=== PATIENT | male | born 1960 | race Caucasian/White ===

== ENCOUNTER → 2020-04-25 | Emergency (ER) | payer SELFPAY ==
[~2020-04-25] VITALS: Ht 180.3 cm; Wt 81.6 kg
[~2020-04-25] MED LIST: IV LR 1000 ML 1,000 ML IV ONE; IV NS 0.9% 1,000 ML BAG IV ONE; ONDANSETRON HCL/PF - ER 4 MG/2 ML VIAL IV ONE; ONDANSETRON HCL/PF 4 MG/2 ML VIAL ONE
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
--- NOTE | 2020-04-25 20:28 | NUR ---
1L FLUIDS GIVEN TO PT.
--- NOTE | 2020-04-25 20:32 | NUR ---
CALLED CT TO TAKE PT TO CT [facility].
--- NOTE | 2020-04-25 20:40 | NUR ---
Donna montoya in [facility] - 04/25/20 at 2058 by KAUSHIKOR BROUGHT TO CT
--- NOTE | 2020-04-25 20:43 | NUR ---
CALLED CT AGAIN, STATED WAITING FOR LABS
--- NOTE | 2020-04-25 20:45 | NUR ---
BROUGHT TO CT
[2020-04-25 20:47] LABS: BASOPHILS % (AUTO) 0.1 % (0.0-2.0); HEMATOCRIT 39 % (39-51); HEMOGLOBIN 12.6 g/dL (13.5-17.5); LYMPHOCYTES % (AUTO) 4.9 % (20.0-44.0); MEAN CORPUSCULAR HGB CONC 33 g/dl (31.0-36.0); MEAN CORPUSCULAR VOLUME 89 fL (80-96); MONOCYTES # (AUTO) 1.8 /CMM (0.1-1.30); MONOCYTES % (AUTO) 8.8 % (2.0-12.0); NEUTROPHILS # (AUTO) 17.6 /CMM (1.8-8.9); NEUTROPHILS % (AUTO) 86.2 % (43.0-81.0); PLATELET COUNT (AUTO) 172 /CMM (150-450); RED BLOOD CELL COUNT(AUTO) 4.31 MIL/uL (4.5-6.0); WHITE BLOOD COUNT (AUTO) 20.5 K/uL (4.3-11.0)
[2020-04-25 21:44] LABS: CALCIUM, SERUM 9.1 mg/dL (8.5-10.1); CREATININE 1.5 mg/dL (0.6-1.3); POTASSIUM 3.4 mmol/L (3.5-5.1)
--- NOTE | 2020-04-25 21:49 | NUR ---
CALLED [facility] [phone], DR. GUILLORY SPEAKING TO [facility], SPOKE TO [facility], INSTRUCTED TO FILL OUT TRANSFER FORM THEN PLACED ON HOLD. DR. GUILLORY AWARE
[2020-04-25 21:50] LABS: ALBUMIN 4.2 g/dL (3.4-5.0); BILIRUBIN,DIRECT 0.2 mg/dL (0.0-0.2); TOTAL PROTEIN, SERUM 6.7 g/dL (6.4-8.2)
--- NOTE | 2020-04-25 21:51 | NUR ---
MICHEL HUNTER TALKING TO DR. HARDWICK FROM [facility]. PT ACCEPTED BY DR. HARDWICK PER DR. GUILLORY
--- NOTE | 2020-04-25 21:57 | NUR ---
REPORT CALLED TO [facility]. AWAITING TRANSPORT.
--- NOTE | 2020-04-25 21:59 | NUR ---
CALLED 911 FOR HIGHER LEVEL OF CARE TO [facility]. SPOKE TO [employer] 216.
--- NOTE | 2020-04-25 22:10 | NUR ---
REPORT GIVEN TO [facility]CUE 88 FOR HIGHER LEVEL OF CARE TRANSPORT. PT AWARE OF TRANSPORT. IV'S INTACT AND PATENT. NO S/S INFECTION OR INFILTRATION NOTED. PER RA 88 TOOK OVER CARE, TRANSFER PACKET PROVIDED, PT PLACED ON GURNEY.
[2020-04-25 22:13] VITALS: BP 119/75
== END | disposition home or self-care (01) ==
LOC: ER 20:13
DX: S22.42XA Multiple fractures of ribs, left side, initial encounter for closed fracture (principal); S36.032A Major laceration of spleen, initial encounter; S20.212A Contusion of left front wall of thorax, initial encounter; S39.81XA Other specified injuries of abdomen, initial encounter; J94.2 Hemothorax; K66.1 Hemoperitoneum; R55 Syncope and collapse; R00.0 Tachycardia, unspecified; V49.59XA Passenger injured in collision with other motor vehicles in traffic accident, initial encounter; Y93.89 Activity, other specified; Y92.488 Other paved roadways as the place of occurrence of the external cause; Y99.8 Other external cause status
CPT/HCPCS: 36415 ×2; 70450; 71260; 74177; 80048; 80076; 84484; 85025; 85730; 86850; 93005; 96361; 96374; 99291; 99292; J2405 ×2; J7030; J7120 ×2